=== PATIENT | male | born 1945 | race Caucasian/White ===

== ENCOUNTER 2019-04-13 04:49 | Observation (INO) | payer MEDICARE ==
--- NOTE | 2019-04-13 05:15 | ED ---
HPI Chest Pain - HPI Summary HPI Summary: Patient is a 73 y/o M presenting to the ED for a chief complaint of midsternal chest pain that radiates to the back that began upon waking up around 04:00 on 04/13/19. Patient rates the chest pain as a 3/10 in severity. Patient denies nausea, shortness of breath, cough, diaphoresis, bilateral LE edema, fever, or chills. The chest pain worsens with deep breaths. No aggravating factors are noted. He reports a history of palpitations for which he had an echocardiogram in the past. PMHx is significant for heart murmur, but he denies a history of atrial fibrillation or atrial flutter. - History of Current Complaint Chief Complaint: EDChestWallPain Time Seen by Provider: 04/13/19 05:00 Hx Obtained From: Patient Onset/Duration: Atraumatic, Still Present Timing: Lasting Minutes Initial Severity: Mild Current Severity: Mild Pain Intensity: 3 Pain Scale Used: 0-10 Numeric Chest Pain Location: Mid Sternal Chest Pain Radiates: Yes Chest Pain Radiates To:: Back Aggravating Factor(s): Deep Breaths Alleviating Factor(s): Nothing Associated Signs and Symptoms: Positive: Chest Pain - Midsternal. Negative: Shortness of Breath, Fever, Chills, Diaphoresis, Nausea, Cough, Edema - Bilateral LE - Allergy/Home Medications Allergies/Adverse Reactions: Allergies Allergy/AdvReac Type Severity Reaction Status Date / Time Penicillins Allergy GI Upset Verified 04/13/19 05:04 Home Medications: Home Medications Propranolol HCl 10 mg PO DAILY 04/13/19 [History Confirmed 04/13/19] PMH/Surg Hx/FS Hx/Imm Hx Previously Healthy: Yes Cardiovascular History: Reports: Hx Hypertension Sensory History: Denies: Hx Legally Blind, Hx Deafness Opthamlomology History: Denies: Hx Legally Blind EENT History: Denies: Hx Deafness - Surgical History Surgical History: None Surgery Procedure, Year, and Place: None Infectious Disease History: No Infectious Disease History: Denies: Traveled Outside the [place] in Last 30 Days - Family History Known Family History: Negative: Diabetes - Social History Occupation: Retired Lives: With Family Alcohol Use: Daily Hx Substance Use: Yes Substance Use Type: Reports: Marijuana Hx Tobacco Use: Yes Smoking Status (MU): Former Smoker Review of Systems Negative: Fever, Chills, Skin Diaphoresis Negative: Shortness Of Breath, Cough Negative: Nausea Positive: Myalgia - Back that radiates to the chest. Negative: Edema - Bilateral LE All Other Systems Reviewed And Are Negative: Yes Physical Exam - Summary Physical Exam Summary: Constitutional: Well-developed, Well-nourished, Alert. (-) Distressed Skin: Warm, Dry HENT: Normocephalic; Atraumatic Eyes: Conjunctiva normal Neck: Musculoskeletal ROM normal neck. (-) JVD, (-) Stridor, (-) Tracheal deviation Cardio: Rhythm regular, rate normal, Heart sounds normal; Intact distal pulses; The pedal pulses are 2+ and symmetric. Radial pulses are 2+ and symmetric. (-) Murmur Pulmonary/Chest wall: Effort normal. (-) Respiratory distress, (-) Wheezes, (-) Rales Abd: Soft, (-) tenderness, (-) Distension, (-) Guarding, (-) Rebound Musculoskeletal: (-) Edema Lymph: (-) Cervical adenopathy Neuro: Alert, Oriented x3 Psych: Mood and affect Normal Triage Information Reviewed: Yes Vital Signs On Initial Exam: Initial Vitals Temp Pulse Resp BP Pulse Ox 97.1 F 76 16 163/95 99 04/13/19 05:01 04/13/19 05:01 04/13/19 05:01 04/13/19 05:01 04/13/19 05:01 Vital Signs Reviewed: Yes Procedures - Sedation Patient Received Moderate/Deep Sedation with Procedure: No Diagnostics - Vital Signs Vital Signs Temp Pulse Resp BP Pulse Ox 04/13/19 05:01 97.1 F 76 16 163/95 99 - Laboratory Result Diagrams: 04/13/19 05:22 04/13/19 05:22 Lab Statement: Any lab studies that have been ordered have been reviewed, and results considered in the medical decision making process. - Radiology Chest X-ray Radiology Interpretation Completed By: ED Physician Summary of Radiographic Findings: Chest X-ray IMPRESSION: no acute process. Reviewed and interpreted by Dr. Cullen, pending official radiology report. - EKG 04:51 Cardiac Rate: Other Rate - 89 BPM EKG Rhythm: Atrial Flutter ST Segment: Normal Ectopy: None Summary of EKG Findings: EKG at 04:51 shows atrial flutter at 89 bpm, normal NE , normal QRS, normal QTc, normal axis, normal ST, T wave inversions in V4, V5, and V6, LVH, normal ventricular rate, non-specific EKG. Reviewed and interpreted by Dr. Cullen. Chest Pain Course/Dx - Course Course Of Treatment: Patient is a 73 y/o M presenting to the ED for a chief complaint of midsternal chest pain that radiates to the back that began upon waking up around 04:00 on 04/13/19. Patient rates the chest pain as a 3/10 in severity. Patient denies nausea, shortness of breath, cough, diaphoresis, bilateral LE edema, fever, or chills. The chest pain worsens with deep breaths. No aggravating factors are noted. He reports a history of palpitations for which he had an echocardiogram in the past. PMHx is significant for heart murmur , but he denies a history of atrial fibrillation or atrial flutter. On exam, unremarkable findings. Laboratory abnormal findings: WBC 13.1, Hgb 13.1, Hct 39 , MPV 7.2, absolute neuts 9.7, absolute monos 1.0, creatinine 1.22, glucose 101 , troponin I 0.03, BNP 308. EKG at 04:51 shows atrial flutter at 89 bpm, normal NE, normal QRS, normal QTc, normal axis, normal ST, T wave inversions in V4, V5, and V6, LVH, normal ventricular rate, non-specific EKG. Chest X-ray IMPRESSION: no acute process. At 06:20, Dr. Rosibel Chapin reviewed the patient s case and agrees to admit the patient to [facility]. Patient will be admitted to [facility] with a diagnosis of atrial flutter, elevated troponin, and acute coronary syndrome. - Diagnoses Provider Diagnoses: Atrial flutter, Elevated troponin, Acute coronary syndrome - Provider Notifications Discussed Care Of Patient With: Rosibel Chapin - At 06:20, Dr. Rosibel Chapin reviewed the patients case and agrees to admit the patient to [facility]. Time Discussed With Above Provider: 06:20 Instructed by Provider To: Admit As Inpatient Discharge ED - Sign-Out/Discharge Documenting (check all that apply): Patient Departure - Admit - Discharge Plan Condition: Stable Disposition: ADMITTED TO [facility] Referrals: Buffy Mcknight MD [Primary Care Provider] - - Billing Disposition and Condition Condition: STABLE Disposition: Admitted to [facility] - Attestation Statements Document Initiated by Lonnie: Yes Documenting Scribe: Raysa Villagomez Provider For Whom Lonnie is Documenting (Include Credential): Patricia Ann MD Scribe Attestation: IRaysa, scribed for Patricia Cullen MD on 04/13/19 at 0708. Scribe Documentation Reviewed: Yes Provider Attestation: The documentation as recorded by the Raysa somers accurately reflects the service I personally performed and the decisions made by me, Patricia Cullen MD Status of Scribe Document: Viewed
[2019-04-13 05:40] LABS: ABS Eosinophils 0.3 10^3/ul (0-0.6); ABS Lymphocytes 2.1 10^3/ul (1.0-4.8); ABS Neutrophils 9.7 10^3/ul (1.5-7.7); Hematocrit 39 % (42-52); Hemoglobin 13.1 g/dL (14.0-18.0); Lymphocyte % 15.9 %; Mean Corpuscular HGB Conc 34 g/dL (31-36); Mean Corpuscular Hemoglobin 30 pg (27-31); Mean Corpuscular Volume 89 fL (80-94); Mean Platelet Volume 7.2 fL (7.4-10.4); Platelet Count 269 10^3/uL (150-450); Red Blood Count 4.33 10^6 /uL (4.18-5.48); Red Cell Distribution Width 13 % (10-15); White Blood Count 13.1 10^3/uL (3.5-10.8)
[2019-04-13 06:02] LABS: Troponin I 0.03 ng/mL (<0.03)
[2019-04-13 06:11] LABS: ALT 15 U/L (7-52); AST 23 U/L (13-39); Albumin 3.8 g/dL (3.2-5.2); Albumin/Globulin Ratio 1.4 (1-3); Alkaline Phosphatase 50 U/L (34-104); Anion Gap 9 mmol/L (2-11); BUN/Creatinine Ratio 18.9 (8-20); Blood Urea Nitrogen 23 mg/dL (6-24); CO2 Carbon Dioxide 26 mmol/L (22-32); Chloride 103 mmol/L (101-111); EGFR African American 70.7 (>60); EGFR Non-African American 58.4 (>60); Globulin 2.8 g/dL (2-4); Glucose 101 mg/dL (70-100); Potassium 3.6 mmol/L (3.5-5.0); Sodium 138 mmol/L (135-145); Total Protein 6.6 g/dL (6.4-8.9)
[2019-04-13] MEDS ORDERED: D5W 1/2 NS KCl 20 Meq 1000 ML* 1,000 ML IV SCH (08:00)
--- NOTE | 2019-04-13 08:00 | ADMNOTE ---
Subjective Date of Service: 04/13/19 Interval History: ADMISSION HISTORY AND PHYSICAL EXAM: Allergies Allergy/AdvReac Type Severity Reaction Status Date / Time Penicillins Allergy GI Upset Verified 04/13/19 05:04 Home Medications Medication Instructions Recorded Confirmed Type Propranolol HCl 10 mg PO DAILY 04/13/19 04/13/19 History HPI: The patient was in his usual state of health until he was awoken at 4 AM today with lower sternal chest pain. It is worse with inspiration. No diaphoresis, nausea, palpitations. He has had palpitations for years. He saw Dr. Patino and had an echo. A cath was to be scheduled. He had a Holter about 10 yrs ago. He gets palpitations about once a week. He was prescribed propranolol for public speaking anxiety but takes 5 mg nightly to avoid being kept up by palpitations. He took 10 mg this AM, did not eat. Family History: Findings - Father smoked, of lung cancer. Mother of "medical error". 2 sisters, daughter A&W. Social History: Findings - Student. Daughter is his SDM. Past Medical History: Findings - Umbilical herniorrhaphy, appy. Review of Systems - Measurements Intake and Output: Intake and Output Last 24 Hours 04/11/19 04/12/19 04/13/19 04/14/19 06:59 06:59 06:59 06:59 Weight 140 lb 140 lb - Review of Systems Constitutional Symptoms: Negative: Weight Gain, Weight Loss, Weakness, Fatigue, Fever, Night Sweats, Unexplained Falls, Other Dermatology: Positive: Normal HEENT: Positive: Normal Eyes: Positive: Normal Thyroid: Positive: Normal Pulmonary: Positive: Normal Cardiology: Positive: Chest Pain Gastroenterology: Positive: Normal Genital - Urinary: Positive: Normal Musculoskeletal: Negative: Joint Pain, Joint Stiffness, Arthritis, Osteoporosis, Low Back Pain , Sciatica, Joint Deformities, Kyphoscoliosis, Other Endocrinology: Positive: Normal Hematologic/Lymphatic: Negative: Anemia, Easy Bruising, Hx Leukemia, Hx Lymphoma, Use of Anticoagulant, Use of Antiplatelet Drugs, Other Neurology: Positive: Normal Psychiatry: Positive: Normal Allergic/Immunologic: Negative: Hx Anaphylaxis, Hx Angioedema, Hx Environmental, Hx Seasonal, Asthma, Hx HIV, Immunocompromise, Swollen Glands LymphNodes, Other Objective Active Medications: Potassium Chloride/Dextrose (D5w 1/2 Ns Kcl 20 Meq 1000 Ml*) 1,000 mls @ 125 mls/hr IV PER RATE CEDRIC Vital Signs - 8 hr 04/13/19 04/13/19 04/13/19 05:01 05:03 05:06 Temperature 97.1 F Pulse Rate 76 91 98 Respiratory 16 19 Rate Blood Pressure 163/95 163/95 (mmHg) O2 Sat by Pulse 99 100 98 Oximetry 04/13/19 04/13/19 04/13/19 05:33 06:00 06:03 Temperature Pulse Rate 87 90 92 Respiratory 21 20 21 Rate Blood Pressure 147/93 136/94 (mmHg) O2 Sat by Pulse 96 96 95 Oximetry Oxygen Devices in Use Now: None Appearance: Alert, sitting up on ED stretcher. Eyes: No Scleral Icterus Ears/Nose/Mouth/Throat: Clear Oropharnyx, Mucous Membranes Moist Neck: NL Appearance and Movements; NL JVP, No Thyroid Enlargement, Masses Respiratory: Symmetrical Chest Expansion and Respiratory Effort, Clear to Auscultation, Clear to Percussion Cardiovascular: NL Sounds; No Murmurs; No JVD, RRR, No Edema, - - No chest wall tenderness Abdominal: NL Sounds; No Tenderness; No Distention, No Hepatosplenomegaly Extremities: No Edema, No Clubbing, Cyanosis, - Skin: No Rash or Ulcers, No Nodules or Sclerosis, - Neurological: Alert and Oriented x 3, NL Sensation Result Diagrams: 04/13/19 05:22 04/13/19 05:22 Assess/Plan/Problems-Billing Assessment: - Patient Problems (1) Chest pain Current Visit: Yes Status: Acute Code(s): R07.9 - CHEST PAIN, UNSPECIFIED SNOMED Code(s): 40783142 Comment: Tele, nuclear chemical stress test, serial troponins. (2) Atrial flutter Current Visit: Yes Status: Acute Code(s): I48.92 - UNSPECIFIED ATRIAL FLUTTER SNOMED Code(s): 3879239 Comment: Rate under 100. Tele. Obtain echo from Dr. Patino. TSH pending.
[2019-04-13 08:11] LABS: TSH (Thyroid Stimulating Horm) 3.06 mcIU/mL (0.34-5.60)
[2019-04-13] MEDS ORDERED: Regadenoson* 0.4 MG/5 ML SYRINGE ONE (08:22)
[2019-04-13 09:06] LABS: Troponin I 0.03 ng/mL (<0.03)
[2019-04-13 14:12] LABS: Troponin I 0.03 ng/mL (<0.03)
[2019-04-13] MEDS ORDERED: Perflutren Lipid Microsphere* 3 ML VIAL ONE (14:44)
--- NOTE | 2019-04-13 16:50 | ECHO ---
*[facility]* [place] [address] Fax #: [phone] Transthoracic Echocardiogram Patient: Jarred Hernandez : 1945 Study Date: 04/13/2019 Age: 73 Gender: M HR: 97 bpm Height: 66 in /167.6 cm BSA: 1.72 m^2 Weight: 139.7 lb /63.5 kg BMI: 22.6 kg/m^2 *Public Services Assistant: * Steph Haley RDCS RN *Referring Physician: * Pedrito Barnett *Reading Physician: * Anshu Moore MD Indications: Abnormal EKG. Atrial Flutter. History: Murmur. Risk factors: Former tobacco use. Hypertension. Conclusions Summary: - Left ventricle: The cavity size is normal. Wall thickness is mildly to moderately increased. Systolic function is low normal to mildly reduced at 50%. Presence of atrial arrhythmia makes LVEF estimation difficult. Wall motion is normal; there are no regional wall motion abnormalities. - Right ventricle: The cavity size is normal. Systolic function is normal. - Left atrium: The atrium is moderately to severely dilated. - Aortic valve: The valve is trileaflet. The leaflets are mildly thickened. There is mild to moderate, closer to moderate regurgitation - Aortic root: The aortic root is moderately dilated at 4.6 cm. - Ascending aorta: The ascending aorta is mildly dilated at 4.3 cm. - Pulmonary arteries: Systolic pressure can not be accurately estimated. Recommendations: None prior for comparison at time of interpretation. Study data: Transthoracic echocardiogram. Procedure: Transthoracic echocardiography was performed. Image quality was fair. The study was technically limited due to smoking history. Intravenous Definity 3 ml was administered to enhance imaging. Complete 2D, spectral Doppler, and color flow Doppler. Location: Bedside. Patient status: Inpatient. Patient room number: 443-02. Rhythm: Atrial flutter. Findings Left ventricle: The cavity size is normal. Wall thickness is mildly to moderately increased. Systolic function is low normal to mildly reduced at 50%. Presence of atrial arrhythmia makes LVEF estimation difficult. Wall motion is normal; there are no regional wall motion abnormalities. Doppler parameters are consistent with abnormal left ventricular relaxation (grade 1 diastolic dysfunction). Right ventricle: The cavity size is normal. Systolic function is normal. Left atrium: The atrium is moderately to severely dilated. Right atrium: The atrium is mildly dilated. Mitral valve: The leaflets are mildly thickened. There is no evidence of stenosis. There is trace to mild regurgitation. Aortic valve: The valve is trileaflet. The leaflets are mildly thickened. There is no evidence of stenosis. There is mild to moderate, closer to moderate regurgitation Tricuspid valve: The valve is structurally normal. There is no evidence of stenosis. There is trace regurgitation. Pulmonic valve: The valve is structurally normal. There is no evidence of stenosis. There is trace regurgitation. Aorta: Aortic root: The aortic root is moderately dilated at 4.6 cm. Ascending aorta: The ascending aorta is mildly dilated at 4.3 cm. Aortic arch: The aortic arch is not dilated. Pericardium: There is no significant pericardial effusion. Pulmonary arteries: The main pulmonary artery is normal-sized. Systolic pressure can not be accurately estimated. Systemic veins: Inferior vena cava: The vessel is mildly dilated. There is (>= 50%) respiratory change in the IVC dimension. Measurements Left ventricle Value Ref Aortic valve Value Ref KHURRAM, LAX 5.2 cm 4.2 - 5.8 Claudia diam, ED 2.2 cm ---- ESD, LAX (H) 4.1 cm 2.5 - 4.0 Peak v, S 1.3 m/sec ---- FS, LAX (L) 23 % 25 - 43 VTI, S 22.3 cm ---- PW, ED (H) 1.3 cm 0.6 - 1.0 Mean grad, S 4.0 mm Hg ---- IVS/PW, ED 1.01 Peak grad, S 7.0 mm Hg ---- E', lat claudia, TDI 11.2 cm/sec >=10.0 LVOT/AV, VTI ratio 0.81 -- -- E/e', lat claudia, 7 AR peak v 4.08 m/sec ---- TDI AR PHT 492 ms ---- E', med claudia, TDI (L) 6.2 cm/sec >=7.0 AR peak grad 67 mm Hg -- -- E/e', med claudia, 13 TDI Mitral valve Value Ref E', avg, TDI 8.7 cm/sec Peak E 0.8 m/sec ---- E/e', avg, TDI 9 <=14 Decel time 199 ms -- -- Peak grad, D 2.6 mm Hg ---- LVOT Value Ref Peak vladislav, S 1.05 m/sec Pulmonic valve Value Ref VTI, S 18.0 cm Peak v, S 0.87 m/sec ---- Mean grad, S 2 mm Hg Peak grad, S 3.0 mm Hg ---- Ventricular septum Value Ref Aortic root Value Ref IVS, ED (H) 1.3 cm 0.6 - 1.0 Root diam (H) 4.6 cm <3.9 Right ventricle Value Ref Ascending aorta Value Ref KHURRAM, LAX 3.1 cm AAo AP diam, S 4.3 cm ---- KHURRAM minor ax, A4C 3.5 cm 1.9 - 3.5 mid Aortic arch Value Ref Arch diam 2.7 cm ---- Left atrium Value Ref AP dim, ES (H) 4.30 cm 3.00 - Decending aorta Value Ref 4.00 Crystal peak vladislav 0.41 m/sec ---- ML dim, A4C 4.7 cm SI dim, A4C 6.4 cm Inferior vena cava Value Ref Vol/bsa, ES, 1-p (H) 51 ml/m^2 12 - 37 Diam 2.2 cm ---- A4C Vol/bsa, ES, A/L (H) 65 ml/m^2 16 - 34 Right atrium Value Ref ML dim, ES, A4C 4.3 cm 2.6 - 4.4 SI dim, ES, A4C (H) 5.7 cm 3.4 - 5.3 Estimated RAP 8 mm Hg Legend: (L) and (H) mercedes values outside specified reference range. Prepared and electronically signed by Anshu Moore MD 04/13/2019 16:50
[2019-04-13] MEDS: Apixaban* 5 MG TAB PO SCH ×2 (21:59→22:05)
[2019-04-14 08:09] VITALS: BP 139/88
--- NOTE | 2019-04-14 08:56 | DS ---
CC: Dr. Mcknight; Dr. Patino * DISCHARGE SUMMARY: DATE OF ADMISSION: 04/13/19 DATE OF DISCHARGE: 04/14/19 HISTORY OF PRESENT ILLNESS: This 73-year-old man presented with low sternal chest pain that woke him at 4 a.m. It was worse with inspiration. He did not have palpitations at that time, although he gives a history of palpitations for many years. He has seen Dr. Patino and had echocardiogram as an outpatient and there was consideration for cardiac catheterization. He last had a Holter monitor 10 years ago. He takes propranolol 5 mg nightly to help reduce his palpitations. Originally, this was prescribed for public speaking anxiety. The rest of the history is detailed in the admission note. The patient was admitted to a telemetry unit. He was in atrial flutter and atrial fibrillation throughout his hospital stay. The rate was controlled generally in the 80s at rest. He was completely asymptomatic after admission. Echocardiogram here showed systolic function of 50% LVEF, it was made that a presence of atrial arrhythmia made estimation of LVEF difficult. The left atrium was moderately to severely dilated. There was mild to moderate aortic regurgitation. Nuclear cardiac stress test was done on the day of admission. There was a suggestion of a small infarct in the cardiac apex versus apical thinning. There was no evidence for ischemia on the stress test. The patient's LONNIE-VASc score was 1. Consideration for aspirin monotherapy is the one possibility although this is somewhat controversial in the recent literature. The patient will follow up with Dr. Patino for further evaluation and treatment. FINAL DIAGNOSIS: Atrial fibrillation. DISCHARGE MEDICATIONS: Propranolol 5 mg nightly. CONDITION ON DISCHARGE: Stable. DISPOSITION ON DISCHARGE: Discharged home. [id number]/[facility] #: [id number] [facility]
== END 2019-04-14 09:00 | disposition home or self-care (01) ==
LOC: ED 04:49 → MEDTELE 07:47
PROVIDERS: ADMIT Internal Medicine; ATTEND Internal Medicine
DX: I48.91 Unspecified atrial fibrillation (principal); R07.9 Chest pain, unspecified; Z88.0 Allergy status to penicillin; Z79.899 Other long term (current) drug therapy; I10 Essential (primary) hypertension; Z87.891 Personal history of nicotine dependence; R79.89 Other specified abnormal findings of blood chemistry
CPT/HCPCS: 36415; 71045; 78452; 80053; 83605; 83880; 84443; 84484; 85025; 85379; 93005; 93017; 93306; 99283; A9270-GY; A9502; C8929; G0378; J2785

== ENCOUNTER 2023-09-27 14:37 | Inpatient (IN) ==
[2023-09-27] MEDS: Iodixanol (CONTRAST) 320 MG/ML 100 ML SDV IV ONE (15:02)
[2023-09-27 15:05] LABS: ABS Basophils 0.1 10^3/uL (0.0-0.1); ABS Eosinophils 0.2 10^3/uL (0.0-0.5); ABS Lymphocytes 4.1 10^3/uL (1.0-4.8); ABS Monocytes 0.8 10^3/uL (0.0-1.1); ABS Neutrophils 7.5 10^3/uL (1.5-7.6); ABS Nucleated RBC 0.01 10^3/ul; Eosinophil % 1.3 %; Hematocrit 31.2 % (38-53); Hemoglobin 10.1 g/dL (13.2-16.3); Lymphocyte % 32.7 %; Mean Corpuscular Hemoglobin 29.3 pg (27-33); Mean Corpuscular Hgb Conc 32.3 g/dL (31-36); Mean Corpuscular Volume 90.7 fL (80-97); Mean Platelet Volume 7.3 fL (7.5-11.2); Nucleated Red Blood Cells % 0.1 %/100WBC (0.0-0.8); Platelet Count 323 10^3/uL (150-450); Red Blood Count 3.44 10^6/uL (4.06-5.63); Red Cell Distribution Width 13.9 % (12-17); White Blood Count 12.6 10^3/uL (3.6-10.2)
[2023-09-27 15:19] LABS: INR 0.99 (0.83-1.13)
[2023-09-27] MEDS: Morphine 4 MG/ML VIAL (1 ml) IV ONE ×2 (15:19→19:41)
[2023-09-27] MEDS: Ondansetron 4 mg VIAL 2 MG/ML 2 ml VIAL IV ONE (15:19)
[2023-09-27] MEDS: Lactated Ringers 1000 ml BAG 1,000 ML IV ONE (15:24)
[2023-09-27 15:27] LABS: High Sens Troponin Baseline 13 pg/mL (<20)
[2023-09-27] MEDS: cefTRIAXone 1 gm/50 mL D5W 1 GM/50 ML BAG IV ONE (15:34)
[2023-09-27] MEDS: fentaNYL 100 mcg/2 ml 50 MCG/ML VIAL IV SLOW PU ONE ×2 (16:00→18:00)
[2023-09-27] MEDS: metroNIDAZOLE IV 500 MG/100ML 500 MG/100 ML BAG IVPB ONE (16:06)
[2023-09-27 16:10] LABS: ALT 19 U/L (7-52); AST 29 U/L (13-39); Albumin 4.4 g/dL (3.2-5.2); Albumin/Globulin Ratio 1.7 (1-3); Alkaline Phosphatase 51 U/L (35-149); Anion Gap 11 mmol/L (2-16); Blood Urea Nitrogen 25 mg/dL (6-24); CO2 Carbon Dioxide 22 mmol/L (22-32); Calcium 9.7 mg/dL (8.6-10.3); Chloride 104 mmol/L (101-111); Creatinine, Serum 1.41 mg/dL (0.67-1.17); Globulin 2.6 g/dL (2-4); Glucose 125 mg/dL (70-100); Lipase 183 U/L (11.0-82.0); Potassium 3.8 mmol/L (3.5-5.0); Sodium 137 mmol/L (135-145); Total Bilirubin 0.6 mg/dL (0.2-1.0); eGFR CKD-EPI 51.3 (>60)
[2023-09-27 16:48] LABS: High Sensitivity Troponin 1 Hr 12 pg/mL (<20)
[2023-09-27 20:36] LABS: Alcohol, S < 13 mg/dL (<13)
[2023-09-27] MEDS: Lactated Ringers 1000 ml BAG 1,000 ML IV SCH (22:01)
[2023-09-27] MEDS ORDERED: fentaNYL 100 mcg/2 ml 50 MCG/ML VIAL ONE (22:04)
[2023-09-27] MEDS ORDERED: Propofol 10 MG/ML 20 ML BTL ONE (22:05)
[2023-09-27] MEDS ORDERED: Rocuronium 50 mg VIAL 10 mg/ml 5 ml VIAL (50 mg) ONE (22:05)
[2023-09-27] MEDS ORDERED: Succinylcholine 200 mg VIAL 20 mg/ml 10 ml VIAL (200 mg) ONE (22:05)
[2023-09-27] MEDS ORDERED: Bupivacaine 0.25% EPI 200,000 30 ML SDV ONE (22:09)
[2023-09-27] MEDS ORDERED: Sodium Chloride 0.9% 10 ML ONE (22:11)
[2023-09-27] MEDS ORDERED: Phenylephrine 40 mcg/mL 10mL (400mcg) SYRINGE ONE (22:11)
[2023-09-27] MEDS: HYDROmorphone 0.5 MG/0.5 ML SYRINGE IV SLOW PU PRN (22:20)
[2023-09-27] MEDS ORDERED: Lidocaine 2% PF 5 ML VIAL ONE (23:02)
[2023-09-27] MEDS ORDERED: Midazolam 2 mg/2 ml VIAL 1 mg/ml 2 ml VIAL (2 mg) ONE (23:14)
[2023-09-27] MEDS ORDERED: Sevoflurane BOTTLE ONE (23:15)
[2023-09-27] MEDS ORDERED: Dexamethasone IV 4 MG/ML VIAL 1 ml VIAL ONE (23:26)
[2023-09-27] MEDS ORDERED: Ondansetron 4 mg VIAL 2 MG/ML 2 ml VIAL ONE (23:26)
[2023-09-27] MEDS ORDERED: Phenylephrine IV 10 MG/ML 1 ml VIAL ONE (23:58)
[2023-09-28] MEDS ORDERED: Rocuronium 50 mg VIAL 10 mg/ml 5 ml VIAL (50 mg) ONE (00:08)
[2023-09-28] MEDS ORDERED: Calcium CHLORIDE 10% SYRINGE 1 GM/10 ML ONE (00:10)
[2023-09-28] MEDS ORDERED: Propofol 10 MG/ML 20 ML BTL ONE (00:13)
[2023-09-28] MEDS: Propofol 10 mg/ml 100 ML BTL 1,000 MG/100 ML BTL IV SCH (00:45)
[2023-09-28] MEDS: fentaNYL INFUSION 50 mcg/mL VL 2,500 MCG/50 ML VIAL IV SCH (01:11)
[2023-09-28] MEDS: Pantoprazole VIAL 40 MG VIAL IV SCH (01:17)
[2023-09-28] MEDS: Chlorhexidine MOUTHWASH 0.12% 15 ML UDC TOPICAL SCH (01:31)
[2023-09-28 01:40] LABS: ABS Monocytes 0.9 10^3/uL (0.0-1.1); ABS Neutrophils 18.9 10^3/uL (1.5-7.6); ABS Nucleated RBC 0.01 10^3/ul; Hemoglobin 9.2 g/dL (13.2-16.3); Lymphocyte % 4.6 %; Mean Corpuscular Hemoglobin 29.8 pg (27-33); Mean Corpuscular Hgb Conc 32.9 g/dL (31-36); Mean Corpuscular Volume 90.7 fL (80-97); Mean Platelet Volume 7.3 fL (7.5-11.2); Platelet Count 246 10^3/uL (150-450); Red Blood Count 3.09 10^6/uL (4.06-5.63); Red Cell Distribution Width 13.7 % (12-17); White Blood Count 20.8 10^3/uL (3.6-10.2)
[2023-09-28 02:39] LABS: Calcium 9.2 mg/dL (8.6-10.3); Creatinine, Serum 1.5 mg/dL (0.67-1.17); Potassium 4.5 mmol/L (3.5-5.0); eGFR CKD-EPI 47.7 (>60)
[2023-09-28] MEDS: metroNIDAZOLE IV 500 MG/100ML 500 MG/100 ML BAG IVPB SCH (05:31)
[2023-09-28 05:50] LABS: ALT 14 U/L (7-52); Albumin 3.2 g/dL (3.2-5.2); Albumin/Globulin Ratio 1.5 (1-3); Alkaline Phosphatase 40 U/L (35-149); Anion Gap 11 mmol/L (2-16); Blood Urea Nitrogen 26 mg/dL (6-24); CO2 Carbon Dioxide 21 mmol/L (22-32); Calcium 8.3 mg/dL (8.6-10.3); Chloride 99 mmol/L (101-111); Globulin 2.1 g/dL (2-4); Glucose 135 mg/dL (70-100); Sodium 131 mmol/L (135-145); Total Bilirubin 0.9 mg/dL (0.2-1.0); Total Protein 5.3 g/dL (6.4-8.9); eGFR CKD-EPI 47.7 (>60)
[2023-09-28] MEDS: Lactated Ringers 1000 ml BAG 1,000 ML IV ONE (06:02)
[2023-09-28 06:15] LABS: Triglycerides 1743 mg/dL
[2023-09-28] MEDS: NS 0.9% 500 ml BAG 500 ML IV ONE ×2 (08:34→18:54)
[2023-09-28 09:32] LABS: ABS Basophils 0.3 10^3/uL (0.0-0.1); ABS Lymphocytes 1.1 10^3/uL (1.0-4.8); ABS Monocytes 1.4 10^3/uL (0.0-1.1); ABS Neutrophils 16.1 10^3/uL (1.5-7.6); ABS Nucleated RBC 0.04 10^3/ul; Eosinophil % 0.2 %; Hematocrit 24.8 % (38-53); Hemoglobin 9.3 g/dL (13.2-16.3); Lymphocyte % 5.8 %; Mean Corpuscular Hemoglobin 34.3 pg (27-33); Mean Corpuscular Hgb Conc 37.5 g/dL (31-36); Mean Corpuscular Volume 91.6 fL (80-97); Mean Platelet Volume 8.5 fL (7.5-11.2); Nucleated Red Blood Cells % 0.2 %/100WBC (0.0-0.8); Platelet Count 257 10^3/uL (150-450); Red Blood Count 2.71 10^6/uL (4.06-5.63); Red Cell Distribution Width 14.1 % (12-17)
[2023-09-28 10:02] LABS: ABS Lymphocytes 0.9 10^3/uL (1.0-4.8); ABS Monocytes 1.3 10^3/uL (0.0-1.1); ABS Neutrophils 14.9 10^3/uL (1.5-7.6); Hematocrit 23.3 % (38-53); Hemoglobin 7.6 g/dL (13.2-16.3); Lymphocyte % 5.4 %; Mean Corpuscular Hemoglobin 29.1 pg (27-33); Mean Corpuscular Hgb Conc 32.4 g/dL (31-36); Mean Corpuscular Volume 89.9 fL (80-97); Mean Platelet Volume 7.3 fL (7.5-11.2); Platelet Count 233 10^3/uL (150-450); Red Cell Distribution Width 13.8 % (12-17); White Blood Count 17.1 10^3/uL (3.6-10.2)
[2023-09-28 10:11] LABS: Anion Gap 18 mmol/L (2-16); Blood Urea Nitrogen 13 mg/dL (6-24); CO2 Carbon Dioxide 10 mmol/L (22-32); Calcium 6.2 mg/dL (8.6-10.3); Chloride 105 mmol/L (101-111); Creatinine, Serum 0.62 mg/dL (0.67-1.17); Glucose 69 mg/dL (70-100); Magnesium 0.7 mg/dL (1.9-2.7); Sodium 133 mmol/L (135-145); eGFR CKD-EPI 98.4 (>60)
[2023-09-28] MEDS: Magnesium Sulf 4 GM/100 ML IV 4,000 MG/100 ML BAG IVPB ONE (10:40)
[2023-09-28] MEDS ORDERED: Dextrose 50% Syringe 50 ml 25 GM/50 ML SYRINGE IV PUSH PRN (11:29)
[2023-09-28 11:35] LABS: Calcium 7.6 mg/dL (8.6-10.3); Creatinine, Serum 1.7 mg/dL (0.67-1.17); Magnesium 1.5 mg/dL (1.9-2.7); Potassium 5.5 mmol/L (3.5-5.0)
[2023-09-28] MEDS: CALCIUM GLUCONATE 1GM/50ML NS 1 GM/50 ML BAG IV ONE (11:48)
[2023-09-28 12:35] LABS: Urine Appearance Clear; Urine Bilirubin Negative (Negative); Urine Blood Negative (Negative); Urine Color Yellow; Urine Glucose Negative (Negative); Urine Ketones Negative (Negative); Urine Nitrite Negative (Negative); Urine Protein Trace (Negative); Urine Specific Gravity 1.031 (1.002-1.030); Urine Urobilinogen Negative (Negative); Urine pH 5.5 (5.0-8.0)
[2023-09-28] MEDS: D5W 1/2 NS 1000 ml BAG 1,000 ML IV SCH (13:02)
[2023-09-28] MEDS: Midazolam PREMIXBAG 1 MG/ML NS 100 ML IV ONE (13:05)
[2023-09-28] MEDS: Midazolam PREMIXBAG 1 MG/ML NS 100 ML IV SCH (13:05)
[2023-09-28 15:53] LABS: Hematocrit 27.2 % (38-53); Hemoglobin 8.8 g/dL (13.2-16.3); Mean Corpuscular Hgb Conc 32.2 g/dL (31-36); Mean Corpuscular Volume 90.2 fL (80-97); Mean Platelet Volume 7.5 fL (7.5-11.2); Platelet Count 230 10^3/uL (150-450); Red Blood Count 3.01 10^6/uL (4.06-5.63); Red Cell Distribution Width 14.6 % (12-17); White Blood Count 19.4 10^3/uL (3.6-10.2)
[2023-09-28] MEDS: cefTRIAXone 1 gm/50 mL D5W 1 GM/50 ML BAG IV SCH (16:32)
[2023-09-28 17:09] LABS: ALT 14 U/L (7-52); Albumin 2.7 g/dL (3.2-5.2); Albumin/Globulin Ratio 1.6 (1-3); Alkaline Phosphatase 34 U/L (35-149); Anion Gap 7 mmol/L (2-16); Blood Urea Nitrogen 35 mg/dL (6-24); CO2 Carbon Dioxide 19 mmol/L (22-32); Calcium 7.9 mg/dL (8.6-10.3); Chloride 104 mmol/L (101-111); Creatinine, Serum 1.98 mg/dL (0.67-1.17); Globulin 1.7 g/dL (2-4); Glucose 147 mg/dL (70-100); Sodium 130 mmol/L (135-145); Total Bilirubin 0.5 mg/dL (0.2-1.0); Total Protein 4.4 g/dL (6.4-8.9); eGFR CKD-EPI 34.2 (>60)
[2023-09-28 18:06] LABS: ABS Monocytes 1.7 10^3/uL (0.0-1.1); ABS Neutrophils 16.8 10^3/uL (1.5-7.6); ABS Nucleated RBC 0.01 10^3/ul; RBC Morphology Normal (Normal)
[2023-09-28 18:33] LABS: Magnesium 2.8 mg/dL (1.9-2.7)
[2023-09-28] MEDS: Norepinephrine 4 MG/250mL D5W 4,000 MCG/250 ML BAG IV ONE (19:10)
[2023-09-28] MEDS: Norepinephrine 4 MG/250mL NS 4,000 MCG/250 ML BAG IV SCH (19:10)
[2023-09-28 21:18] LABS: Hematocrit 25.3 % (38-53); Hemoglobin 8.5 g/dL (13.2-16.3)
[2023-09-28 21:49] LABS: Anion Gap 7 mmol/L (2-16); Blood Urea Nitrogen 40 mg/dL (6-24); CO2 Carbon Dioxide 18 mmol/L (22-32); Calcium 7.6 mg/dL (8.6-10.3); Chloride 104 mmol/L (101-111); Glucose 138 mg/dL (70-100); Magnesium 2.6 mg/dL (1.9-2.7); Sodium 129 mmol/L (135-145); eGFR CKD-EPI 28.5 (>60)
[2023-09-29 04:58] LABS: Hematocrit 26.4 % (38-53); Hemoglobin 8.7 g/dL (13.2-16.3); Mean Corpuscular Hemoglobin 29.6 pg (27-33); Mean Corpuscular Hgb Conc 32.9 g/dL (31-36); Mean Corpuscular Volume 90.1 fL (80-97); Mean Platelet Volume 7.7 fL (7.5-11.2); Platelet Count 188 10^3/uL (150-450); Red Blood Count 2.93 10^6/uL (4.06-5.63); White Blood Count 20.6 10^3/uL (3.6-10.2)
[2023-09-29 05:03] LABS: ABS Lymphocytes 1.6 10^3/uL (1.0-4.8); ABS Monocytes 1.6 10^3/uL (0.0-1.1); ABS Neutrophils 17.4 10^3/uL (1.5-7.6); ABS Nucleated RBC 0.01 10^3/ul; Lymphocyte % 7.6 %
[2023-09-29 05:41] LABS: Albumin 2.5 g/dL (3.2-5.2); Albumin/Globulin Ratio 1.3 (1-3); Calcium 7.4 mg/dL (8.6-10.3); Creatinine, Serum 2.9 mg/dL (0.67-1.17); Globulin 1.9 g/dL (2-4); Magnesium 2.5 mg/dL (1.9-2.7); Phosphorus 5.9 mg/dL (2.5-5.0); Potassium 5.2 mmol/L (3.5-5.0); Total Bilirubin 0.5 mg/dL (0.2-1.0); Total Protein 4.4 g/dL (6.4-8.9); eGFR CKD-EPI 21.6 (>60)
[2023-09-29] MEDS ORDERED: Phenylephrine 40 mcg/mL 10mL (400mcg) SYRINGE ONE (06:42)
[2023-09-29] MEDS ORDERED: Dexamethasone IV 4 MG/ML VIAL 1 ml VIAL ONE (06:42)
[2023-09-29] MEDS ORDERED: Ondansetron 4 mg VIAL 2 MG/ML 2 ml VIAL ONE (06:42)
[2023-09-29] MEDS ORDERED: Propofol 10 MG/ML 20 ML BTL ONE (06:42)
[2023-09-29] MEDS ORDERED: Lidocaine 2% PF 5 ML VIAL ONE (06:42)
[2023-09-29] MEDS ORDERED: Glycopyrrolate IV 0.2 MG/ML 1 ML VIAL ONE (06:42)
[2023-09-29] MEDS ORDERED: Rocuronium 50 mg VIAL 10 mg/ml 5 ml VIAL (50 mg) ONE ×4 (06:44→09:58)
[2023-09-29] MEDS ORDERED: Bupivacaine 0.25% EPI 200,000 30 ML SDV ONE (06:52)
[2023-09-29] MEDS: Dexmedetomidine 1,000 MCG in NS 0.9% 250 ml 240 ML IV SCH (07:15)
[2023-09-29] MEDS ORDERED: fentaNYL 250 mcg/5 ml 50 MCG/ML 5 ml VIAL (250 MCG) ONE (08:38)
[2023-09-29] MEDS: Furosemide 40 mg/4 ml IV VIAL IV SLOW PU ONE (11:17)
[2023-09-29] MEDS: Hyaluronidase HUMAN 15 UNIT in Sodium Chloride 0.9% 0.9 ML INTRADERM ONE (11:24)
[2023-09-29] MEDS: Furosemide 100 mg/10 ml IV 100 MG in NS 0.9% 100 ml BAG 90 ML IV SCH ×2 (13:30→22:51)
[2023-09-29] MEDS: Heparin 5000 UNITS/ML 1 mL VIAL SUBCUT SCH (15:44)
[2023-09-29 16:39] LABS: Calcium 7.2 mg/dL (8.6-10.3); Creatinine, Serum 3.16 mg/dL (0.67-1.17); Magnesium 2.4 mg/dL (1.9-2.7); Phosphorus 7.2 mg/dL (2.5-5.0); Potassium 4.9 mmol/L (3.5-5.0); eGFR CKD-EPI 19.5 (>60)
[2023-09-29] MEDS: Albumin Human 25% 25 GM/100 ML BTL IV ONE (17:52)
[2023-09-29 22:40] LABS: Creatinine, Serum 3.16 mg/dL (0.67-1.17); Magnesium 2.3 mg/dL (1.9-2.7); Potassium 4.2 mmol/L (3.5-5.0); eGFR CKD-EPI 19.5 (>60)
[2023-09-30 01:39] LABS: Calcium 7.1 mg/dL (8.6-10.3); Creatinine, Serum 3.05 mg/dL (0.67-1.17); Magnesium 2.3 mg/dL (1.9-2.7); eGFR CKD-EPI 20.3 (>60)
[2023-09-30 04:35] LABS: ABS Lymphocytes 0.7 10^3/uL (1.0-4.8); ABS Monocytes 0.7 10^3/uL (0.0-1.1); ABS Neutrophils 7.4 10^3/uL (1.5-7.6); Eosinophil % 0.1 %; Hematocrit 23.3 % (38-53); Hemoglobin 7.9 g/dL (13.2-16.3); Lymphocyte % 7.6 %; Mean Corpuscular Hemoglobin 29.5 pg (27-33); Mean Corpuscular Hgb Conc 34.1 g/dL (31-36); Mean Corpuscular Volume 86.5 fL (80-97); Mean Platelet Volume 7.3 fL (7.5-11.2); Platelet Count 186 10^3/uL (150-450); Red Cell Distribution Width 15.1 % (12-17); White Blood Count 8.8 10^3/uL (3.6-10.2)
[2023-09-30 05:13] LABS: Albumin 2.8 g/dL (3.2-5.2); Albumin/Globulin Ratio 1.5 (1-3); Calcium 7.1 mg/dL (8.6-10.3); Creatinine, Serum 2.95 mg/dL (0.67-1.17); Globulin 1.9 g/dL (2-4); Magnesium 2.3 mg/dL (1.9-2.7); Potassium 3.7 mmol/L (3.5-5.0); Total Bilirubin 0.5 mg/dL (0.2-1.0); Total Protein 4.7 g/dL (6.4-8.9); Uric Acid 6.6 mg/dL (4.4-7.6); eGFR CKD-EPI 21.2 (>60)
[2023-09-30 05:59] LABS: Hepatitis B Surface Antigen Nonreactive (Nonreactive)
[2023-09-30 06:16] LABS: Hepatitis C Antibody Negative (Negative)
[2023-09-30] MEDS: KCL 20 MEQ/100 ML IVPREMIX 20 MEQ/100 ML BAG IV ONE (06:39)
[2023-09-30] MEDS: Midazolam 2 mg/2 ml VIAL 1 mg/ml 2 ml VIAL (2 mg) ONE (07:10)
[2023-09-30] MEDS: Midazolam 2 mg/2 ml VIAL 1 mg/ml 2 ml VIAL (2 mg) IV SLOW PU ONE (08:33)
[2023-09-30] MEDS: Lactated Ringers 1000 ml BAG 1,000 ML IV ONE ×2 (10:45→11:25)
[2023-09-30] MEDS: HYDROmorphone 0.5 MG/0.5 ML SYRINGE IV SLOW PU PRN (10:45)
[2023-09-30] MEDS ORDERED: Acetaminophen IV 1 GM/100ML 1,000 MG/100 ML BAG IV PRN (10:53)
[2023-09-30] MEDS: Norepinephrine 4 MG/250mL D5W 4,000 MCG/250 ML BAG IV ONE (11:12)
[2023-09-30] MEDS: Acetaminophen IV 1 GM/100ML 1,000 MG/100 ML BAG IV SCH (13:25)
[2023-10-01] MEDS ORDERED: Senna TAB 8.6 mg TAB PO PRN (08:46)
[2023-10-01 09:41] LABS: Creatinine, Serum 1.74 mg/dL (0.67-1.17); eGFR CKD-EPI 39.9 (>60)
[2023-10-01 09:42] LABS: ABS Lymphocytes 1.1 10^3/uL (1.0-4.8); ABS Monocytes 0.6 10^3/uL (0.0-1.1); ABS Neutrophils 4.3 10^3/uL (1.5-7.6); Calcium 7.1 mg/dL (8.6-10.3); Hematocrit 20.2 % (38-53); Hemoglobin 6.9 g/dL (13.2-16.3); Lymphocyte % 17.9 %; Magnesium 2.2 mg/dL (1.9-2.7); Mean Corpuscular Hemoglobin 29.8 pg (27-33); Mean Corpuscular Hgb Conc 34.4 g/dL (31-36); Mean Corpuscular Volume 86.7 fL (80-97); Mean Platelet Volume 7.6 fL (7.5-11.2); Platelet Count 132 10^3/uL (150-450); Red Blood Count 2.33 10^6/uL (4.06-5.63); Red Cell Distribution Width 15.2 % (12-17)
[2023-10-01 09:43] LABS: Eosinophil % 0.6 %
[2023-10-01 11:34] LABS: Hematocrit 22.6 % (38-53); Hemoglobin 7.7 g/dL (13.2-16.3); Mean Corpuscular Hemoglobin 29.6 pg (27-33); Mean Corpuscular Hgb Conc 33.8 g/dL (31-36); Mean Corpuscular Volume 87.4 fL (80-97); Mean Platelet Volume 7.5 fL (7.5-11.2); Platelet Count 180 10^3/uL (150-450); Red Blood Count 2.59 10^6/uL (4.06-5.63); White Blood Count 7.9 10^3/uL (3.6-10.2)
[2023-10-01 15:54] LABS: Phosphorus 2.3 mg/dL (2.5-5.0)
[2023-10-01] MEDS: KCL 20 MEQ/100 ML IVPREMIX 20 MEQ/100 ML BAG IV SCH (16:55)
[2023-10-02 06:36] LABS: Albumin 2.7 g/dL (3.2-5.2); Calcium 7.8 mg/dL (8.6-10.3); Creatinine, Serum 1.2 mg/dL (0.67-1.17); Globulin 2.7 g/dL (2-4); Potassium 2.9 mmol/L (3.5-5.0); Total Bilirubin 0.6 mg/dL (0.2-1.0); Total Protein 5.4 g/dL (6.4-8.9); eGFR CKD-EPI 62.3 (>60)
[2023-10-02 06:38] LABS: ABS Eosinophils 0.1 10^3/uL (0.0-0.5); ABS Lymphocytes 1.3 10^3/uL (1.0-4.8); ABS Monocytes 0.7 10^3/uL (0.0-1.1); Eosinophil % 0.9 %; Hematocrit 20.7 % (38-53); Hemoglobin 7.2 g/dL (13.2-16.3); Mean Corpuscular Hemoglobin 30.3 pg (27-33); Mean Corpuscular Hgb Conc 34.7 g/dL (31-36); Mean Corpuscular Volume 87.2 fL (80-97); Mean Platelet Volume 7.2 fL (7.5-11.2); Platelet Count 202 10^3/uL (150-450); Red Blood Count 2.38 10^6/uL (4.06-5.63); White Blood Count 8.1 10^3/uL (3.6-10.2)
[2023-10-02] MEDS ORDERED: HYDROmorphone 0.5 MG/0.5 ML SYRINGE IV SLOW PU PRN (09:45)
[2023-10-02] MEDS: Ondansetron 4 mg VIAL 2 MG/ML 2 ml VIAL IV PRN (09:46)
[2023-10-02] MEDS: Benzocaine/Menthol LOZ MT PRN (09:46)
[2023-10-02] MEDS: KCL 20 MEQ/100 ML IVPREMIX 20 MEQ/100 ML BAG IV SCH (09:47)
[2023-10-02] MEDS: KCL 20 MEQ/100 ML IVPREMIX 20 MEQ/100 ML BAG ONE (18:04)
[2023-10-02 18:05] LABS: Hematocrit 19.5 % (38-53); Hemoglobin 6.4 g/dL (13.2-16.3)
[2023-10-03 06:55] LABS: ABS Eosinophils 0.1 10^3/uL (0.0-0.5); ABS Lymphocytes 1.5 10^3/uL (1.0-4.8); ABS Monocytes 0.8 10^3/uL (0.0-1.1); ABS Neutrophils 5.4 10^3/uL (1.5-7.6); ABS Nucleated RBC 0.01 10^3/ul; Eosinophil % 1.9 %; Hematocrit 22.9 % (38-53); Lymphocyte % 19.2 %; Mean Corpuscular Hemoglobin 30.7 pg (27-33); Mean Corpuscular Hgb Conc 34.8 g/dL (31-36); Mean Corpuscular Volume 88.4 fL (80-97); Mean Platelet Volume 7.1 fL (7.5-11.2); Nucleated Red Blood Cells % 0.1 %/100WBC (0.0-0.8); Platelet Count 188 10^3/uL (150-450); Red Blood Count 2.59 10^6/uL (4.06-5.63); Red Cell Distribution Width 14.7 % (12-17); White Blood Count 7.9 10^3/uL (3.6-10.2)
[2023-10-03 08:02] LABS: Calcium 7.4 mg/dL (8.6-10.3); Creatinine, Serum 1.12 mg/dL (0.67-1.17); Magnesium 1.7 mg/dL (1.9-2.7); Potassium 3.1 mmol/L (3.5-5.0); eGFR CKD-EPI 67.7 (>60)
[2023-10-03] MEDS: KCL 20 MEQ/100 ML IVPREMIX 20 MEQ/100 ML BAG IV SCH (10:43)
[2023-10-03 15:33] LABS: Hematocrit 24.7 % (38-53); Hemoglobin 8.3 g/dL (13.2-16.3)
[2023-10-04 06:47] LABS: ABS Basophils 0.1 10^3/uL (0.0-0.1); ABS Eosinophils 0.2 10^3/uL (0.0-0.5); ABS Monocytes 1.2 10^3/uL (0.0-1.1); ABS Neutrophils 7.8 10^3/uL (1.5-7.6); ABS Nucleated RBC 0.01 10^3/ul; Eosinophil % 1.5 %; Hematocrit 23.6 % (38-53); Lymphocyte % 17.7 %; Mean Corpuscular Hemoglobin 30.1 pg (27-33); Mean Corpuscular Volume 88.5 fL (80-97); Mean Platelet Volume 7.5 fL (7.5-11.2); Platelet Count 211 10^3/uL (150-450); Red Blood Count 2.66 10^6/uL (4.06-5.63); White Blood Count 11.2 10^3/uL (3.6-10.2)
[2023-10-04 06:57] LABS: Calcium 7.9 mg/dL (8.6-10.3); Creatinine, Serum 1.12 mg/dL (0.67-1.17); Magnesium 1.6 mg/dL (1.9-2.7); Potassium 3.4 mmol/L (3.5-5.0); eGFR CKD-EPI 67.7 (>60)
[2023-10-04] MEDS: Potassium Chlor 20 meq TAB.ER PO ONE (08:33)
[2023-10-04] MEDS: Magnesium Sulfate 2 gm BAG 2 GM/50 ML BAG IVPB ONE (08:33)
[2023-10-04] MEDS: Magnesium Sulfate IV 1GM/100ML 1 GM/100 ML BAG IV ONE (11:22)
[2023-10-04] MEDS: Enoxaparin 40 MG/0.4 ML SYR SUBCUT SCH (11:22)
[2023-10-04 12:07] LABS: Flag, M-protein Isotype Negative (Negative); Immunoglobulin A (IgA), S 153 mg/dL (61 - 356); Immunoglobulin G (IgG), S 503 mg/dL (767 - 1590); Immunoglobulin M (IgM), S 46 mg/dL (37 - 286)
[2023-10-04 15:53] LABS: Hematocrit 24.1 % (38-53)
[2023-10-04 16:33] LABS: Complement C3 71 mg/dL (75 - 175)
[2023-10-05 06:03] LABS: ABS Eosinophils 0.2 10^3/uL (0.0-0.5); ABS Lymphocytes 1.8 10^3/uL (1.0-4.8); ABS Monocytes 1.1 10^3/uL (0.0-1.1); ABS Neutrophils 8.3 10^3/uL (1.5-7.6); Eosinophil % 1.4 %; Hematocrit 22.3 % (38-53); Hemoglobin 7.4 g/dL (13.2-16.3); Lymphocyte % 15.6 %; Mean Corpuscular Hemoglobin 29.5 pg (27-33); Mean Corpuscular Hgb Conc 33.1 g/dL (31-36); Mean Corpuscular Volume 89.2 fL (80-97); Mean Platelet Volume 7.4 fL (7.5-11.2); Platelet Count 253 10^3/uL (150-450); Red Cell Distribution Width 14.9 % (12-17); White Blood Count 11.4 10^3/uL (3.6-10.2)
[2023-10-05 06:24] LABS: Calcium 7.5 mg/dL (8.6-10.3); Creatinine, Serum 1.02 mg/dL (0.67-1.17); Magnesium 1.9 mg/dL (1.9-2.7); Potassium 3.7 mmol/L (3.5-5.0); eGFR CKD-EPI 75.7 (>60)
[2023-10-06 05:54] LABS: ABS Eosinophils 0.1 10^3/uL (0.0-0.5); ABS Monocytes 0.9 10^3/uL (0.0-1.1); ABS Neutrophils 7.1 10^3/uL (1.5-7.6); ABS Nucleated RBC 0.01 10^3/ul; Eosinophil % 1.4 %; Hematocrit 25.6 % (38-53); Hemoglobin 7.7 g/dL (13.2-16.3); Lymphocyte % 19.3 %; Mean Corpuscular Hemoglobin 29.2 pg (27-33); Mean Corpuscular Volume 97.5 fL (80-97); Mean Platelet Volume 7.4 fL (7.5-11.2); Nucleated Red Blood Cells % 0.1 %/100WBC (0.0-0.8); Platelet Count 269 10^3/uL (150-450); Red Blood Count 2.63 10^6/uL (4.06-5.63); Red Cell Distribution Width 16.7 % (12-17); White Blood Count 10.2 10^3/uL (3.6-10.2)
[2023-10-06 06:02] LABS: Calcium 7.6 mg/dL (8.6-10.3); Creatinine, Serum 1.02 mg/dL (0.67-1.17); Magnesium 1.8 mg/dL (1.9-2.7); Potassium 3.8 mmol/L (3.5-5.0); eGFR CKD-EPI 75.7 (>60)
[2023-10-06 14:36] VITALS: BP 145/77
== END 2023-10-06 17:05 | disposition home or self-care (01) | DRG 853 ==
LOC: EDHOLD 14:37 → ED 14:37 → EDHOLD 22:23 → ICU 09-28 00:52 → SSU 10-01 15:03
PROVIDERS: ADMIT Surgery; ATTEND Surgery